=== PATIENT | male | born 1945 | race Caucasian/White ===

== ENCOUNTER → 2018-12-22 11:06 | Outpatient (CLI) | payer OTHER, SELFPAY ==
--- NOTE | 2018-12-22 | DI.MRI.S_ITS ---
PROCEDURE: MR KNEE LT WO CON INDICATIONS: PRIMARY OSTEOARTHRITIS OF LEFT KNEE TECHNIQUE: Noncontrast sagittal PD fast spin echo and T2 fast spin echo with fat saturation, sagittal 3-D FLASH with fat saturation; coronal T1 spin echo and PD fast spin echo with fat saturation, and axial PD fast spin echo with fat saturation through the knee. COMPARISON: None. FINDINGS: Image quality: Excellent. Menisci: Lateral meniscus appears intact. Complex macerated tear of the medial meniscus involving anterior horn, posterior horn and body. There is also near complete extrusion of the body. Cruciate ligaments: The anterior cruciate ligament appears mildly thickened with intrasubstance signal change suggestive of mucoid degeneration. The posterior cruciate ligament appears intact. Medial structures: The medial collateral ligament appears mildly thickened at its proximal segment although this is age-indeterminate. The posterior oblique ligament, semimembranosus tendon insertions, oblique popliteal ligament, and meniscocapsular junction appear intact. Visualized portions of the pes anserinus tendons appear normal. No abnormal bursal fluid. Lateral structures: The lateral collateral ligament demonstrates age-indeterminate sprain of the proximal segment. There is also signal change and thickening of the distal popliteus insertion, also of unknown age. Iliotibial band and biceps femoris appear intact Anterior structures: Distal quadriceps and proximal patellar tendinopathy or also there is low-grade distal patellar tendinopathy. Adjacent superficial infrapatellar subcutaneous edema. Patellar alignment is normal. No femoral trochlear dysplasia or ventral trochlear prominence. No edema in the infrapatellar fat pad. Bones and cartilage: No bone marrow contusions or fractures. Within the medial compartment there is full thickness denudation of the femoral and tibial articular cartilage with associated subchondral marrow edema. Within the lateral compartment, diffuse partial thickness loss of the central weightbearing femoral and tibial articular cartilage. Within the patellofemoral compartment, no focal articular cartilage defect is seen. Joint space: Moderate joint effusion is present. There is a 5 mm loose body projecting within the medial aspect of the intercondylar notch adjacent to tibial eminence on image 22 series 10. Arita's cyst is seen measuring approximately 5 cm in the cephalocaudad dimension. IMPRESSION: Complex macerated circumferential medial meniscal tear, with near complete extrusion. Mucoid degeneration of the anterior cruciate ligament. Sprain of the proximal medial collateral ligament, age-indeterminate. Proximal lateral collateral ligament low-grade sprain, and distal popliteus tendinopathy also unknown age. Severe degenerative joint disease, most advanced in the medial compartment. Moderate joint effusion. 5 mm loose body within the medial aspect of the intercondylar notch as above. Dictated by: Kash Solares M.D. on 12/22/2018 at 12:03 Approved by: Kash Solares M.D. on 12/22/2018 at 12:14
== END ==
PROVIDERS: PCP Family Medicine; Visit Provider Orthopaedic Surgery
DX: S83.272A Complex tear of lateral meniscus, current injury, left knee, initial encounter (principal); S83.422A Sprain of lateral collateral ligament of left knee, initial encounter; S83.412A Sprain of medial collateral ligament of left knee, initial encounter; M17.12 Unilateral primary osteoarthritis, left knee; M25.462 Effusion, left knee
CPT/HCPCS: 73721

== ENCOUNTER → 2022-01-29 06:58 | Outpatient (CLI) | payer OTHER, SELFPAY ==
[2022-01-29 09:23] LABS: Prostate Specific Antigen 1.44 ng/mL (0.10-4.00)
== END ==
PROVIDERS: PCP Family Medicine; Referring Provider Specialist; Visit Provider Specialist
DX: N40.1 Benign prostatic hyperplasia with lower urinary tract symptoms (principal); N13.8 Other obstructive and reflux uropathy
CPT/HCPCS: 36415; 84153

== ENCOUNTER → 2023-02-02 11:32 | Outpatient (CLI) | payer OTHER, SELFPAY ==
[2023-02-05 21:10] LABS: Prostate Specific Antigen 3.25 ng/mL (0.10-4.00)
== END ==
PROVIDERS: PCP Family Medicine; Referring Provider Urology; Visit Provider Urology
DX: R31.29 Other microscopic hematuria (principal)
CPT/HCPCS: 36415; 84153

== ENCOUNTER → 2023-03-25 13:02 | Outpatient (CLI) | payer OTHER, SELFPAY ==
[2023-03-25 14:53] LABS: Prostate Specific Antigen 4.91 ng/mL (0.10-4.00)
== END ==
PROVIDERS: PCP Family Medicine; Referring Provider Specialist; Visit Provider Specialist
DX: N40.1 Benign prostatic hyperplasia with lower urinary tract symptoms (principal); N13.8 Other obstructive and reflux uropathy
CPT/HCPCS: 36415; 84153

== ENCOUNTER → 2023-04-21 13:03 | Outpatient (CLI) | payer OTHER, SELFPAY ==
[2023-04-23 08:13] LABS: PSA Free % 13.3 % (.); PSA, Total 3.6 ng/mL (0.0-4.0)
== END ==
PROVIDERS: PCP Family Medicine; Referring Provider Specialist; Visit Provider Specialist
DX: R97.20 Elevated prostate specific antigen [PSA] (principal); N40.1 Benign prostatic hyperplasia with lower urinary tract symptoms; N13.8 Other obstructive and reflux uropathy
CPT/HCPCS: 36415; 84153; 84154

== ENCOUNTER → 2023-04-23 09:11 | Outpatient (CLI) | payer OTHER, SELFPAY ==
--- NOTE | 2023-04-23 09:14 | DI.MRI.S_ITS ---
PROCEDURE: MR PELVIS WO/W CON INDICATIONS: elevated PSA. Hematuria TECHNIQUE: Coronal HASTE, axial T1 FSE with fat saturation, 3-plane nonbreath-hold T2 FSE. After the administration of contrast, dynamic axial, delayed axial and coronal VIBE or 2-D FLASH with fat saturation through the pelvis. Optional diffusion weighted imaging and ADC may be performed. COMPARISON: None. FINDINGS: Image quality: Diffusion weighted and dynamic contrast enhanced images are diagnostic. Prostate: Gland size is 5.5 x 3.7 x 4.9 cm; ellipsoid gland volume is 52 mL. Mild linear and wedge-shaped ADC hypointensities present within the prostate peripheral zone with indistinct T2 correlates (PI-RADS 2 findings). Enlargement of the prostate transitional zone with findings typical of benign prostatic hyperplasia. No large lesion strongly stands out against background parenchymal changes of BPH on T2 weighted images (PI-RADS 2 findings). Genitourinary system: Bladder wall thickness is normal. Distal ureters are non distended. Bowel and peritoneum: No pathologic free pelvic fluid. Inferior colon and small bowel loops are normal in caliber. Severe sigmoid colonic diverticulosis without MR evidence of acute diverticulitis. Nodes and vessels: No pelvic or inguinal adenopathy by size criteria. Iliac vessels are normal in caliber. Bones: Marrow demonstrates normal overall signal, without lesions to suggest metastases. IMPRESSION: 1. No large or highly suspicious focal prostate lesion to direct biopsy. There is enlargement of the prostate transitional zone with findings typical of benign prostatic hyperplasia, with prostate volume estimated at 52 cc. 2. No suspicious lymph nodes identified in the imaged pelvis. Dictated by: Valentino Waters M.D. on 04/24/2023 at 10:29 Approved by: Valentino Waters M.D. on 04/24/2023 at 11:30
== END ==
PROVIDERS: PCP Family Medicine; Referring Provider Specialist; Visit Provider Specialist
DX: R97.20 Elevated prostate specific antigen [PSA] (principal); R31.29 Other microscopic hematuria; N40.1 Benign prostatic hyperplasia with lower urinary tract symptoms; N13.8 Other obstructive and reflux uropathy
CPT/HCPCS: 72197; A9579

== ENCOUNTER → 2024-04-20 13:06 | Outpatient (CLI) | payer OTHER, SELFPAY ==
[2024-04-20 15:03] LABS: Prostate Specific Antigen 2.06 ng/mL (0.10-4.00)
== END ==
PROVIDERS: PCP Family Medicine; Referring Provider Specialist; Visit Provider Specialist
DX: R97.20 Elevated prostate specific antigen [PSA] (principal)
CPT/HCPCS: 36415; 84153